=== PATIENT | female | born 1960 | race African-American/Black ===

== ENCOUNTER 2023-11-26 14:42 | Outpatient (AMB) | payer MEDICARE, OTHER, SELFPAY ==
--- NOTE | 2023-11-26 14:46 | HO.NEPHOV ---
HPI HPI Comments History of Present Illness Details Geo is a 63-year-old female whom I had the pleasure of seeing in follow-up of her longstanding hypertension. She does not check her blood pressure at home. She is retired and is still doing some part-time jobs. She does not have any chest pain, shortness of breath, paroxysmal nocturnal dyspnea, orthopnea, pedal edema. She has no nausea, vomiting, diarrhea or orthostatic symptoms. She is compliant with her medications. Her blood pressure has been at goal. There were no new active complaints at the time of this office visit. [facility] Medical History (Updated 11/26/23 @ 15:48 by Lionel Altamirano MD) Hypertension Surgical History (Updated 11/26/23 @ 14:53 by Sandra Kim MA) History of eye surgery History of hysterectomy History of axillary surgery Family History (Updated 11/26/23 @ 14:57 by Sandra Kim MA) Mother Breast cancer Father Heart disease Paternal Uncle Cancer Maternal Grandmother Diabetes Maternal Grandfather Diabetes Maternal Uncle Lung cancer Paternal Uncle Cirrhosis of liver Social History (Updated 11/26/23 @ 14:57 by Sandra Kim MA) Alcohol intake: never Patient Tobacco Use Status: Never used Tobacco Vital Signs 11/26/23 14:48 Height 5 ft 3 in Weight 215 lb 6 oz BMI 38.1 BP 120/70 Blood Pressure Location Lt brachial Position Sitting Pulse 81 Pulse Source Pulse Oximeter Pulse Oximetry (%) 96 Oxygen Delivery Method Room Air Physical Exam Vital Signs: Last Vital Signs Pulse 81 11/26/23 14:48 BP 120/70 11/26/23 14:48 Pulse Ox 96 11/26/23 14:48 Oxygen Delivery Method Room Air 11/26/23 14:48 BMI result Body Mass Index 38.1 Const General: comfortable and no acute distress Orientation/consciousness: patient oriented x3 HEENT Head: Yes normocephalic Mouth: Normal oral and palatal mucosa present Eyes EOM: EOMs intact bilaterally Neck Neck: Yes supple Resp Auscultation: clear to auscultation bilaterally Cardio Jugular venous distension: no JVD Rate: regular rate GI Palpation (GI): Soft to palpation Auscultation: normal bowel sounds General: Yes no CVA tenderness Back/Spine/Pelvis Back: no CVA tenderness Skin General skin exam: no rashes or lesions noted Neuro General: patient oriented x3 and moves all extremities Extrem General: Yes no pedal edema Assessment & Plan Assessment & Plan (1) Hypertension: Code(s): I10 - Essential (primary) hypertension Qualifiers: Hypertension type: primary hypertension Qualified Code(s): I10 - Essential (primary) hypertension Plan Geo has longstanding hypertension. She does not have any retinopathy, heart failure, documented LVH or proteinuria. She has no history of hypokalemia, hypercalcemia or uncontrolled thyroid disorders. Her renal functions have been normal. She is compliant with her medication regimen. She should be on a low-sodium diet and should continue lifestyle modifications. She needs to lose some weight. I have ordered follow-up lab studies. I did not make any medication changes today. All her questions were answered. No prescription refill was requested. Follow-up appointment given. Orders: Orders Blood Urea Nitrogen Today I10 - Essential (primary) hypertension Creatinine Today I10 - Essential (primary) hypertension Calcium Today I10 - Essential (primary) hypertension Electrolytes Today I10 - Essential (primary) hypertension Coding Level of Care Code Est Pt Level 3 (29238) Diagnoses Primary hypertension I10 Hypertension type: primary hypertension Results Reviewed Nephrology Results: No Data to Display
[2023-11-26 14:48] VITALS: BP 120/70; PULSE 81; O2SAT 96; BMI 38.1
== END 2023-11-26 15:14 | disposition home or self-care (01) ==
PROVIDERS: PCP Internal Medicine; Visit Provider Internal Medicine Nephrology
DX: I10 Essential (primary) hypertension (principal)
CPT/HCPCS: 99213

== ENCOUNTER → 2023-11-26 14:42 | Outpatient (BNVA) | payer MEDICARE, OTHER, SELFPAY | PROVIDERS: PCP Internal Medicine; Visit Provider Internal Medicine Nephrology | DX: I10 Essential (primary) hypertension (principal) | CPT/HCPCS: 99212 ==

== ENCOUNTER 2024-06-02 14:27 | Outpatient (REF) | payer MEDICARE, OTHER, SELFPAY ==
[2024-06-02 18:09] LABS: Anion Gap 12 (12-20); Blood Urea Nitrogen 15 mg/dL (9-16); Calcium 9.9 mg/dL (8.4-10.2); Carbon Dioxide 28 mmol/L (22-29); Chloride 106 mmol/L (96-108); Estimated Glomerular Filt Rate > 60; Potassium 4.4 mmol/L (3.3-5.1); Sodium 142 mmol/L (135-145)
== END 2024-06-02 14:28 | disposition home or self-care (01) ==
LOC: HO.HKASLDS 14:27
PROVIDERS: Visit Provider Internal Medicine Nephrology
DX: I10 Essential (primary) hypertension (principal)
CPT/HCPCS: 36415; 80051; 82310; 82565; 84520

== ENCOUNTER 2024-06-04 14:15 | Outpatient (AMB) | payer MEDICARE, OTHER, SELFPAY ==
[2024-06-04 14:32] VITALS: BP 112/82; PULSE 73; O2SAT 95; BMI 37.0
--- NOTE | 2024-06-04 14:32 | HO.NEPHOV_ITS ---
Vital Signs 06/04/24 14:32 Height 5 ft 3 in Weight 209 lb 2 oz BMI 37.0 BP 112/82 Blood Pressure Location Lt brachial Position Sitting Pulse 73 Pulse Source Pulse Oximeter Pulse Oximetry (%) 95 Oxygen Delivery Method Room Air Intake Visit Reasons: Hypertension/ 6 MO FU/ LVM Prop Making Supervisor Required: No Accompanied by: Self / Same As Patient Allergies No Known Allergies Allergy (Verified 06/04/24 14:34) HPI Comments Details: Geo is a 63-year-old female whom I had the pleasure of seeing in follow-up of her longstanding hypertension. She does not check her blood pressure at home. She is retired and is still doing some part-time jobs. She does not have any chest pain, shortness of breath, paroxysmal nocturnal dyspnea, orthopnea, pedal edema. She has no nausea, vomiting, diarrhea or orthostatic symptoms. She is compliant with her medications. Her blood pressure has been at goal. There were no new active complaints at the time of this office visit. [facility] Medical History (Updated 11/26/23 @ 15:48 by Lionel Altamirano MD) Hypertension Surgical History History of eye surgery History of hysterectomy History of axillary surgery Family History Mother Breast cancer Father Heart disease Paternal Uncle Cancer Maternal Grandmother Diabetes Maternal Grandfather Diabetes Maternal Uncle Lung cancer Paternal Uncle Cirrhosis of liver Social History Alcohol intake: never Patient Tobacco Use Status: Never used Tobacco Physical Exam Vital Signs: Last Vital Signs Pulse 73 06/04/24 14:32 BP 112/82 06/04/24 14:32 Pulse Ox 95 06/04/24 14:32 Oxygen Delivery Method Room Air 06/04/24 14:32 BMI result Body Mass Index 37.0 Const General: comfortable and no acute distress Orientation/consciousness: patient oriented x3 HEENT Head: Yes normocephalic Mouth: Normal oral and palatal mucosa present Eyes EOM: EOMs intact bilaterally Neck Neck: Yes supple Resp Auscultation: clear to auscultation bilaterally Cardio Jugular venous distension: no JVD Rate: regular rate GI Palpation (GI): Soft to palpation Auscultation: normal bowel sounds General: Yes no CVA tenderness Back/Spine/Pelvis Back: no CVA tenderness Skin General skin exam: no rashes or lesions noted Neuro General: patient oriented x3 and moves all extremities Extrem General: Yes no pedal edema Results Reviewed Nephrology Results: Sodium 142 mmol/L (135-145) 06/02/24 Potassium 4.4 mmol/L (3.3-5.1) 06/02/24 Chloride 106 mmol/L (96-108) 06/02/24 Carbon Dioxide 28 mmol/L (22-29) 06/02/24 BUN 15 mg/dL (9-16) 06/02/24 Creatinine 0.84 mg/dL (0.5-1.4) 06/02/24 Calcium 9.9 mg/dL (8.4-10.2) 06/02/24 Assessment & Plan Assessment & Plan (1) Hypertension: Code(s): I10 - Essential (primary) hypertension Category: Medical Qualifiers: Hypertension type: primary hypertension Qualified Code(s): I10 - Essential (primary) hypertension Patience Guardado has longstanding hypertension. She does not have any retinopathy, heart failure, documented LVH or proteinuria. She has no history of hypokalemia, hypercalcemia or uncontrolled thyroid disorders. Her renal functions have been normal. She is compliant with her medication regimen. She should be on a low- sodium diet and should continue lifestyle modifications. She needs to lose some weight. I did not make any medication changes today. All her questions were answered. No prescription refill was requested. Follow-up appointment given Coding Level of Care Code Est Pt Level 4 (90234) Diagnoses Primary hypertension I10 Hypertension type: primary hypertension
== END 2024-06-04 14:52 | disposition home or self-care (01) ==
PROVIDERS: PCP Internal Medicine; Visit Provider Internal Medicine Nephrology
DX: I10 Essential (primary) hypertension (principal)
CPT/HCPCS: 99214

== ENCOUNTER → 2024-06-04 14:15 | Outpatient (BNVA) | payer MEDICARE, OTHER, SELFPAY | PROVIDERS: PCP Internal Medicine; Visit Provider Internal Medicine Nephrology | DX: I10 Essential (primary) hypertension (principal) | CPT/HCPCS: 99212 ==

== ENCOUNTER 2025-03-18 13:44 | Outpatient (AMB) | payer MEDICARE, OTHER, SELFPAY ==
--- OUTSIDE RECORDS SUMMARY | 2025-03-18 14:24 | XMS_ITS | Encounter Summary ---
Author Organization [facility] [place] [address] Care Team Providers Care Drier Attendant Name Role Phone Sandi Degroot MD Primary Care Prov ider Reason for Visit * Reason Onset Date Comments DME 02/25/2025 Encounter Details Date Type Department Care Team ([facility] Contact Info) Description 02/25/2025 Telephone Adult Medicine - [place] [address] [place] [phone] Sandi Degroot MD [address] [place] [address] DME Social History Tobacco Use Types Packs/Day Years Used Date Smoking Tobacco: Never Smokeless Tobacco: Never Alcohol Use Standard Drinks/Week Comments Yes 0 (1 standard drink = 0.6 oz pur e alcohol) Interpersonal Safety Answer Date Record ed Physical Abuse 01/21/2025 Verbal Abuse 01/21/2025 Comments No Sex and Gender Information Value Date Recorded Sex Assigned at Female 11/02/2024 12:57 PM EST Legal Sex Female 6:56 AM EST Gender Identity Female 11/02/2024 12:57 PM EST Sexual Orientation Straight 11/02/2024 12 :57 PM EST documented as of this encounter Progress Notes * Deonna Monroe - 03/09/2025 3:16 PM EDT They called again, hung up on them. * Desire Potter - 03/09/2025 10:22 AM EDT They called again with a [phone] #, I told her it was done and to stop calling us. * Deonna Monroe - 03/08/2025 9:01 AM EDT They called back, I said it was being worked on and I could not give them more information. * Maverick Carroll - 03/05/2025 8:47 AM EDT [facility] calling again about this. Placed call to pt to determine if this was something she actually asked for but pt did not answer. VM left on home and mobile number for pt to confirm whether or not this was asked for. After some further research to confirm my suspicions, Lexii informed me this is in fact a scam. If [facility] calls back inform them the order was received and is being worked on. * Deonna Monroe - 03/02/2025 9:34 AM EDT They called again, asking if this has been rec'd * Jack Zendejas - 02/25/2025 9:45 AM EDT [facility] [employer] called stating patient requested a bilateral knee support. They faxed us request for [employer] on 02/23 and 02/24. They called in today checking if we received it or not. Please advise documented in this encounter Plan of Treatment Upcoming Encounters Date Type Department Care Team (Late st Contact Info) Description 04/08/2025 1:45 PM EDT Appointment [facility] at [address] [phone] documented as of this encounter Visit Diagnoses Not on filedocumented in this encounter Care Teams Drier Attendant Relationship Specialty Start Date End Date Sandi Degroot MD [address] [place] [id number] PCP - General Internal Medicine 01/20/25 documented as of this encounter
--- OUTSIDE RECORDS SUMMARY | 2025-03-18 14:24 | XMS_ITS | Patient Health Record ---
Author Organization [employer] [facility] Address [address] [facility] [address] [place] [phone] Support Name Relationship Address Phone Geo Nowak Guarantor Unknown [phone] Allergies No Known Allergies Reason For Referral No Information Medications Medication SIG (Take, Route, Frequency, Duration) Notes Start Date End Date Status Phentermine HCl 30 MG 1 capsule Orally O nce a day for 28 days 01/26/2022 Active Vitamin D 50 MCG (1999) 1 tablet Orally Once a day Not-Taking Lovastatin 40 MG 1 tablet with the evening meal Orally Once a day for 90 days Active Zofran 4 MG 1 tablet Orally twic e a day as needed for 30 day(s) 03/07/2021 Active Metoprolol Succinate ER 25 MG 1 tablet Orally Once a day for 90 days Active Lisinopril 40 MG 1 tablet Orally Once a day for 90 days Active Move Free [facility] Advance - as directed Orally 1 tablet daily Active amLODIPine Besylate 5 MG 1 tablet Orally Once a day Active Immunizations Vaccine Route Administration Date Status Comme nts COVID Unknown 01/24/2021 Administered Moderna COVID Unknown 02/21/2021 Administered Moderna Social History Tobacco Use: Social History Observation Description Date Details (start date - stop date) Never Smoker NA - NA Tobacco Use/Smoking Question Answer Notes Are you a nonsmoker Alcohol Screen (Audit-C) Question Answer Notes Did you have a drink contain ing alcohol in the past year? Yes How often did you have a dri nk containing alcohol in the past year? Monthly or less (1 point) How many drinks did you have on a typical day when you were drinking in the past year? 1 or 2 drinks (0 point) How often did you have 6 or more drinks on one occasion in the past year? Never (0 point) Points 1 Interpretation Negative Problems Problem Type SNOMED Code ICD Code Onset Dates Problem Status W/U Status Risk Notes Problem Vitamin D deficiency (67141459) Vitamin D deficiency, unspecified (E55.9) Active confirmed Problem Morbid obesity (disorder) (466756486) Morbid (severe) obesity due to excess calories (E66.01) Active confirmed Problem Mixed hyperlipidemia (941064781) Mixed hyperlipidemia (E78.2) Active confirmed Problem Hyperglycemia (70539495) Hyperglycemia, unspecified (R73.9) Active confirmed Problem Body mass index (BMI) 40.0-44.9, adult (Z68.41) Active confirmed Problem Essential hypertension (50716776) Essential (primary) hypertension (I10) Active confirmed Plan Of Treatment Pending Test Test Name Order Date 25OH VITAMIN D 12/16/2019 COMPREHENSIVE METABOLIC PANEL 12/16/2019 HEMOGLOBIN A1C 12/16/2019 MAGNESIUM 12/16/2019 PHOSPHORUS 12/16/2019 TSH 12/16/2019 Insurance Providers Payer Name Payer Address Payer Phone Subscriber Number Group Number Insured Name Patient Relationship to Insured Coverage Start Date Coverage End Date [facility] [address] [place] [place], [place] [phone] [id number] Geo Nowak Self - patient is the insured Medical (General) History Medical History History ICD Code hypertension, benign hyperlipidemia Vitamin D deficiency Surgical History Surgery Date(Month/Year) partial hysterectomy lymph node removal Hospitalization History Reason Date(Month/Year)
--- OUTSIDE RECORDS SUMMARY | 2025-03-18 14:24 | XMS_ITS | Clinical Summary ---
Author Organization [facility] [address] [facility] lding Address [address] [place] [address] Phone Care Team Providers Care Home Improvement Contractor Name Role Phone Sandi Degroot MD Primary Care Prov ider Allergies No known active allergies Medications amLODIPine (NORVASC) 5 mg tablet TAKE 1 TABLET DAILY 90 tablet 1 4 Active lisinopril (PRINIVIL,ZEST RIL) 40 mg tablet TAKE 1 TABLET DAILY 90 tablet 1 4 Active lovastatin (MEVACOR) 40 mg tablet Take 1 tablet (40 mg total) by mouth 1 (one) time each day. 90 tablet 1 5 Active metoprolol succinate (TOPROL-XL) 25 mg 24 hr tablet TAKE 1 TABLET DAILY 90 tablet 5 Active glucosamine-ch ondroitin 500-400 mg tablet Take 1 tablet by mouth 3 (three) times a day. Active black cohosh root (BLACK COHOSH ORAL) Take by mouth. Ac tive polyethylene glycol (Golytely) 236-22.74-6.74 -5.86 gram solution Take 4L by mouth once for one dose. May substitue any PEG. Starting at 6PM the night before your procedure drink 1 8oz glasses at your own pace until you complete half of the gallon. Finish 2nd half of the gallon 5 hours before your procedure. 4000 mL 5 025 Discontin ued(Thera py completed ) bisacodyL (DULCOLAX) 5 mg EC tablet Take 2 tablets by mouth right before beginning bowel prep. See instructions provided by the office 2 tablet 025 Discontin ued(Thera py completed ) Active Problems Problem Noted Date Diagnosed Date Osteopenia 12/09/2023 Cataract of left eye 10/05/2021 Hypercholesteremia 09/28/2015 Essential hypertension 03/09/2013 Osteoarthritis 03/09/2013 Amblyopia 07/16/2008 Traumatic cataract 07/16/2008 Severe obesity with body mas s index (BMI) of 35.0 to 39.9 with serious comorbidity ([facility] V24, [facility] V28) 03/19/2006 Unspecified glaucoma(365.9) 03/19/2006 Encounters Date Type Department Care Team Description 03/11/2025 Telephone Adult Medicine [facility] [address] [place] [phone] Sandi Birch MD Fitting for DME 02/25/2025 Telephone Adult [facility] [address] [place] [phone] Sandi Birch MD DME 02/17/2025 11:00 AM EDT Office Visit Adult [address] [phone] Sandi Birch MD Essential hypertension (Primary Dx); Hypercholesteremia; Osteoarthritis, unspecified osteoarthritis type, unspecified site; Severe obesity with body mass index (BMI) of 35.0 to 39.9 with serious comorbidity ([facility] V24, [facility] V28) 01/21/2025 10:32 AM EDT Anesthesia Event [facility] [address] [place] [phone] Edilberto Wheat DO 01/21/2025 9:10 AM EDT - 01/21/2025 11:59 PM EDT Hospital Encounter [facility] [address] [place] [phone] Dominic Jesus MD Walsh, Michael, DO Georgette, Nathaniel, CRNA History of colon polyps Discharge Disposition: Home or Self Care from Last 3 Months Immunizations Name Administration Dates Next Due Hepatitis B (Recombivax HB-D ialysis) 18yo and older 06/23/2003,05/26/2003 Influenza Quadravalent, MDCK , 0.5ml, preservative free (Flucelvax) 6mo and older 08/07/2022,09/01/2019,07/17/2018 Influenza Quadravalent, MDCK , 0.5ml, with preservative (Flucelvax) 6mo and older 09/11/2017 Influenza trivalent, 0.5mL ( Fluad) 65yo and older 07/17/2024,09/30/2023 Influenza trivalent, 0.5mL, preservative free (Fluarix; FluLaval; Fluzone) ages 6mo and older (Afluria) 3 years and older 09/19/2021 Influenza trivalent, with preservative (Fluzone; Afluria) 6mo and older 09/04/2020,10/26/2016,08/24/2015,2013,08/09/2010,10/07/2009 Moderna (age 6mo & older) Bi valent, COVID-19, 0.5 mL or 0.25 mL dosage 08/25/2022 Pneumococcal conjugate 20 va lent (Prevnar 20, PCV 20) 2mo and older 07/17/2024,09/30/2023 Respiratory syncytial virus (RSV), unspecified 10/08/2023 TD, Adsorbed, Preservative Free 05/04/2003 Tdap Tetanus diptheria acell ular pertussis (Boostrix; Adacel) 7yo and older 07/17/2024,02/19/2014 Zoster recombinant (Shingrix ) 19yo and older 03/29/2023,09/15/2022 Surgical History Surgery Date Site/Laterality Comments OTHER SURGICAL HISTORY PROCEDURE: HISTORICAL TOTAL HYSTERECTOMY W/O BSO; COMMENT: abd partial hyst OTHER SURGICAL HISTORY PROCEDURE: TN BX/EXC LYMPH NODE OPEN DEEP AXILLARY NODE; COMMENT: COLONOSCOPY 05/12/2009 PROCEDURE: HISTORICAL COLONOSCOPY; COMMENT: Normal COLONOSCOPY 11/23/2019 PROCEDURE: HISTORICAL COLONOSCOPY; COMMENT: Inadequate prep; no large lesions; repeat in 5 years. Medical History Medical History Date Comments Family history of malignant neoplasm of gastrointestinal tract 05/12/2009 DX:Family history of maligna nt neoplasm of gastrointestinal tract Amblyopia 07/16/2008 DX:Amblyopia Unspecified glaucoma(365.9) 03/19/2006 DX:U nspecified glaucoma(365.9) HTN (hypertension) 03/09/2013 DX:HTN (hyper tension) Family History Medical History Relation Name Comments Glaucoma Aunt maternal aunt Coronary artery disease Father Heart attack Father Colon cancer Father's side 1 Uncle Brain cancer Father's side 2 uncle Liver cancer Father's side 3 uncle Breast cancer Mother Throat cancer Mother's side uncle Relation Name Status Comments Aunt Alive Father Father's side 1 Father's side 2 Father's side 3 Mother Mother's side Uncle Social History Tobacco Use Types Packs/Day Years Used Date Smoking Tobacco: Never Smokeless Tobacco: Never Tobacco Cessation:Counseling Given: Not Answered Alcohol Use Standard Drinks/Week Comments Yes 0 [...] Orientation Straight 11/02/2024 12 :57 PM EST Obstetrics History Last Filed Vital Signs Vital Sign Reading Time Taken Comments Blood Pressure 107/60 02/17/2025 11:00 AM EDT Pulse 69 02/17/2025 11:00 AM EDT Temperature 36.8 ??C (98.2 ??F) 02/17/2025 11:00 AM E DT Respiratory Rate 16 01/21/2025 11:09 AM EDT Oxygen Saturation 98% 01/21/2025 11:09 AM EDT Inhaled Oxygen Concentration - - Weight 95 kg (209 lb 6.4 oz) 02/17/2025 11:00 AM EDT Height 160 cm (5' 3 ) 01/14/2025 9:00 AM EDT Body Mass Index 37.09 01/14/2025 9:00 AM EDT Plan of Treatment Upcoming Encounters Date Type Department Care Team (Late st Contact Info) Description 04/08/2025 1:45 PM EDT [facility]ointment [facility] [address] [phone] Health Maintenance Due Date Last Done Comments Hepatitis B Vaccines (3 of 3 - 19+ 3-dose series) 11/26/2003 06/23/2003, 05/26/2003 RSV Immunization Adult Patients (1 - Risk 60-74 years 1-dose series) 2018 10/08/2023 Medicare Annual Wellness Visit 10/13/2022 Social Influencers of Health Screening 10/13/2022 COVID-19 Vaccine ( season) 2025 10/09/2024, 08/25/2022, 08/21/2022, Additional history exists Depression Screening 08/17/2025 08/17/2024 Hypertension/CHF/CAD Annual BMP Blood Test 08/28/2025 08/28/2024, 08/28/2024 Falls Risk Assessment 01/21/2026 01/21/2025, 024 Breast Cancer Screening 04/06/2026 04/06/20 24, 04/08/2023, 02/14/2022, Additional history exists Cholesterol Screening (Lipid Panel) 08/28/2029 08/28/2024, 08/28/2024 Colorectal Cancer Screening: Colonoscopy 01/21/2030 01/21/2025, 11/23/2019 Osteoporosis Screening (Bone Density Screening) 12/06/2033 12/06/2023, 10/18/2020 DTaP,Tdap,and Td Vaccines (3 - Td or Tdap) 07/17/2034 07/17/2024, 02/19/2014, 05/04/2003 Hepatitis C Screening Completed 04/25/2020 Zoster Vaccines Completed 03/29/2023, 09/15/2022 RSV Immunization Patients Under 20 months Aged Out 10/08/2023 No longer eligible based on patient's age to complete this topic Influenza Vaccine Completed 07/17/2024, , 08/07/2022, Additional history exists Pneumococcal Vaccine: 50+ Years Completed 07/17/2024, 09/30/2023 HIB Vaccines Aged Out No longer eligi ble based on patient's age to complete this topic HPV Vaccines Aged Out No longer eligi ble based on patient's age to complete this topic Hepatitis A Vaccines Aged Out No long er eligible based on patient's age to complete this topic IPV Vaccines Aged Out No longer eligi ble based on patient's age to complete this topic MMR Vaccines Aged Out No longer eligi ble based on patient's age to complete this topic Meningococcal ACWY Vaccine Aged Out N o longer eligible based on patient's age to complete this topic Meningococcal B Vaccine Aged Out No l onger eligible based on patient's age to complete this topic Varicella Vaccines Aged Out No longer eligible based on patient's age to complete this topic Procedures Procedure Name Priority Date/Time Associated Diagnosis Comments COLONOSCOPY Routine 01/21/2025 10:48 AM EDT History of colon polyps ANNUAL BMP BLOOD TEST Routine 08/28/2024 LIPID PANEL Routine 08/28/2024 DEPRESSION SCREENING Routine 08/17/2024 FALLS RISK ASSESSMENT Routine 08/17/2024 JAMISON SCREENING DIGITAL Routine 04/06/2024 2:25 PM EDT Encounter for screening mammogram for malignant neoplasm of breast DXA BONE DENSITY STUDY 1+ SITS AXIAL SKEL Routine 12/06/2023 1:39 PM EST Encounter for screening for osteoporosis HEPATITIS C SCREENING Routine 04/25/2020 from Last 3 Months or Most Recently Relevant to Health Maintenance Results * COLONOSCOPY Anesthesia - MAC; [facility] (01/21/2025 10:48 AM EDT) Anatomical Region Laterality Modality Other 01/21/2025 10:3 4 AM EDT Impressions 01/21/2025 10:50 AM EDT - Internal hemorrhoids. ? - Diverticulosis in the entire examined colon. ? - No specimens collected. Recommendation: ?- Use fiber, for example Citrucel, Fibercon, Konsyl or ? Metamucil. ? - Repeat colonoscopy in 10 years for screening ? purposes. Narrative 01/21/2025 10:50 AM EDT [facility] Patient Name: Geo Nowak Procedure Date: 01/21/2025 10:34 AM Date of : 1960 Age: 64 Gender: Female Note Status: Finalized Attending MD: Dominic Jesus MD, Procedure Date No Time: 01/21/2025 Procedure: ? Colonoscopy Indications: ? Screening for colorectal malignant neoplasm Providers: ? Dominic Jesus MD Referring MD: ?Dominic Jesus MD Medicines: ? Propofol per Anesthesia Complications: ? No immediate complications. Estimated Blood Loss: ? Estimated blood loss: none. Procedure: ? Pre-Anesthesia Assessment: ? - ASA Grade Assessment: II - A patient with mild ? systemic disease. ? After I obtained informed consent, the scope was ? passed under direct vision. Throughout the procedure, ? the patient's blood pressure, pulse, and oxygen ? saturations were monitored continuously.The ? Colonoscope was introduced through the anus and ? advanced to the cecum, identified by appendiceal ? orifice and ileocecal valve. The colonoscopy was ? performed without difficulty. The patient tolerated ? the procedure well. The quality of the bowel ? preparation was adequate. Findings: ?The perianal and digital rectal examinations were ? normal. ? Internal hemorrhoids were found during endoscopy. The ? hemorrhoids were Grade II (internal hemorrhoids that ? prolapse but reduce spontaneously). ? Scattered diverticula were found in the entire colon. Procedure Code(s): ? --- Professional --- ? G0121, Colorectal cancer screening; colonoscopy on ? individual not meeting criteria for high risk Diagnosis Code(s): ? --- Professional --- ? Z12.11, Encounter for screening for malignant neoplasm ? of colon ? K64.1, Second degree hemorrhoids ? K57.30, Diverticulosis of large intestine without ? perforation or abscess without bleeding CPT copyright 2020 [employer]. All rights reserved. The codes documented in this report are preliminary and upon professional fee coder review may be revised to meet current compliance requirements. Dominic Jesus MD 01/21/2025 10:50:07 AM This report has been signed electronically.Dominic Jesus MD Number of Addenda: 0 Note Initiated On: 01/21/2025 10:34 AM Scope In: Scope Out: ? Endoscopy Department at [facility] - [address] [place] [address], ? [place] [phone] Procedure Note Dominic Jesus MD - 01/21/2025 [facility] Patient Name: Geo Nowak Procedure Date: 01/21/2025 10:34 AM Date of : 1960 Age: 64 Gender: Female Note Status: Finalized Attending MD: Dominic Jesus MD, Procedure Date No Time: 01/21/2025 Procedure: Colonoscopy Indications: Screening for colorectal malignant neoplasm Providers: Dominic Jesus MD Referring MD: Dominic Jesus MD Medicines: Propofol per Anesthesia Complications: No immediate complications. Estimated Blood Loss: Estimated blood loss: none. Procedure: Pre-Anesthesia Assessment: - ASA Grade Assessment: II - A patient with mild systemic disease. After I obtained informed consent, the scope was passed under direct vision. Throughout theprocedure, the patient's blood pressure, pulse, and oxygen saturations were monitored continuously.The Colonoscope was introduced through the anus and advanced to the cecum, identified by appendiceal orifice and ileocecal valve. The colonoscopy was performed without difficulty. The patient tolerated the procedure well. The quality of the bowel preparation was adequate. Findings: The perianal and digital rectal examinations were normal. Internal hemorrhoids were found during endoscopy.The hemorrhoids were Grade II (internal hemorrhoidsthat prolapse but reduce spontaneously). Scattered diverticula were found in the entirecolon. Procedure Code(s): --- Professional --- G0121, Colorectal cancer screening; colonoscopy on individual not meeting criteria for high risk Diagnosis Code(s): --- Professional --- Z12.11, Encounter for screening for malignantneoplasm of colon K64.1, Second degree hemorrhoids K57.30, Diverticulosis of large intestine without perforation or abscess without bleeding CPT copyright 2020 [employer]. All rights reserved. The codes documented in this report are preliminary and upon professional fee coder reviewmay be revised to meet current compliance requirements. Dominic Jesus MD 01/21/2025 10:50:07 AM This report has been signed electronically.Dominic Jesus MD Number of Addenda: 0 Note Initiated On: 01/21/2025 10:34 AM Scope In: Scope Out: Endoscopy Department at [facility] - [address] [place] [phone] IMPRESSION: - Internal hemorrhoids. - Diverticulosis in the entire examined colon. - No specimens collected. Recommendation: - Use fiber, for example Citrucel, Fibercon, Konsylor Metamucil. - Repeat colonoscopy in 10 years for screening purposes. Dominic Jesus MD GI~PROCEDURE ORDERABLES Final Re sult * Annual BMP Blood Test (08/28/2024) Pathologist [facility] Annual BMP Blood Test abstracted Historical Provider HEALTH MAINTENANCE Final Result * Lipid panel (08/28/2024) LDL/HDL Ratio 3 0 - 4 Triglycerides 86 0 - 150 mg/dL Cholesterol 175 0 - 200 mg/dL HDL 61 >=40 mg/dL LDL Cholesterol 97 0 - 100 mg/dL Blood Venous blood specimen / Unknown Historical Provider LAB BLOOD ORDERABLES Susie l Result * Falls Risk Assessment (08/17/2024) Falls Risk Assessment abstracted us Historical Provider HEALTH MAINTENANCE Final Result * Depression Screening (08/17/2024) HM Depression Screening abstracted us Historical Provider HEALTH MAINTENANCE Final Result * JAMISON SCREENING DIGITAL (04/06/2024 2:25 PM EDT) Anatomical Region Laterality Modality Mammography 04/06/2024 1:36 PM EDT Narrative 04/06/2024 2:25 PM EDT [facility] Diagnostic Imaging Department [address] [place] [address] Patient: ??GEO NOWAK ?/Age/Sex: 1960 - 63 - F Unit#: ??[id number] ? Location/Status: ??SPDIMAM/REG CLI ? Mnemonic/Ordering Site: ??DIGSC/SPMAM Ordering Physician: ??SANDI DEGROOT MD [facility] Screening Digital - 04/06/24 - Report Status:Signed EXAM: [facility] Screening Digital EXAM DATE AND TIME: 04/06/2024 1:52 PM HISTORY: ??Annual screening COMPARISON: ??Multiple exams dating back to 2018 TECHNIQUE: Bilateral digital breast tomosynthesis was performed in the CC and MLO projections. Computer aided detection with [employer]ab[employer] X[employer] Software 3D 3.1 was employed. TISSUE DENSITY: b. There are scattered areas of fibroglandular density. FINDINGS: No suspicious masses, grouped microcalcifications, or areas of architectural distortion are seen. The skin and vascularity are unremarkable. IMPRESSION: Stable mammographic appearance of the breasts. ??No evidence of malignancy is seen. A negative mammogram in the presence of a clinically suspicious palpable abnormality does not preclude the possibility of malignancy or alter the indications for biopsy. BI-RADS: ??Category 1: Negative RECOMMENDATION(S): 1: Routine screening mammogram BILATERAL in 1 year. 3341F, 7025F Dictating Physician: ??HEATHER AN MD Electronically Signed by: ??HEATHER AN MD Dic Date/Time: ??04/06/241424 Sign date/Time: ??04/06/24 142 Procedure Note Heather An MD - 08/19/2024 [facility] Diagnostic Imaging Department [address] [place] [id number] Patient: GEO NOWAK /Age/Sex: 1960 - 63 - F Unit#: [id number] Location/Status: [facility] CLI Mnemonic/Ordering Site: [facility] Ordering Physician: SANDI DEGROOT MD [facility] Screening Digital - 04/06/24 - Report Status:Signed EXAM: [facility] Screening Digital EXAM DATE AND TIME: 04/06/2024 1:52 PM HISTORY: Annual screening COMPARISON: Multiple exams dating back to 2019 TECHNIQUE: Bilateral digital breast tomosynthesis was performed in the CCand MLO projections. Computer aided detection with [employer] 3D 3.1was employed. TISSUE DENSITY: b. There are scattered areas of fibroglandular density. FINDINGS: No suspicious masses, grouped microcalcifications, or areas ofarchitectural distortion are seen. The skin and vascularity are unremarkable. IMPRESSION: Stable mammographic appearance of the breasts. No evidence of malignancyis seen. A negative mammogram in the presence of a clinically suspicious palpable abnormality does not preclude the possibility of malignancy or alter the indications for biopsy. BI-RADS: Category 1: Negative RECOMMENDATION(S): 1: Routine screening mammogram BILATERAL in 1 year. 3341F, 7025F Dictating Physician: HEATHER AN MD Electronically Signed by: EHATHER AN MD Dic Date/Time: 04/06/24 1425 Sign date/Time: 04/06/24 142 Sandi Degroot MD IMG BI PROCEDURES Final Result * DXA BONE DENSITY STUDY 1+ SITS AXIAL SKEL (12/06/2023 1:39 PM EST) Anatomical Region Laterality Modality Bone Densitometr y 09/30/2023 10:4 9 AM EST Narrative 12/06/2023 1:53 PM EST BONE DENSITY (DEXA) ? Lumbar Spine T-score is -1.1. ?? (SD relative to 20-29 y/o adult) Z-score is 0.7. ??(SD relative to age matched peers) This is considered osteopenia by WHO criteria. Left Hip T-score is 0.8. Z-score is 2.0. This is considered normal by WHO criteria. There is advanced degenerative change of the left hip. IMPRESSION: This patient is considered to have osteopenia by WHO criteria. This patient has a 5.3% risk of major osteoporotic fracture and a 0.1% risk of hip fracture over the next 10 years. (World Health Organization Fracture Risk Assessment) The [facility] Department of Internal Medicine recommends using National Osteoporosis Foundation (NOF) guidelines in treatment decisions related to osteoporosis. NOF guidelines suggest considering treatment for postmenopausal women and men aged 50 or older presenting with the following: History of hip or vertebral fracture. T-score = -2.5 (DXA) at the femoral neck, total hip, or spine, after appropriate evaluation to exclude secondary causes. Low bone mass (T-score between -1.0 and -2.5 at the femoral neck or spine) AND a 10-year probability of a hip fracture = 3% OR a 10-year probability of a major osteoporosis-related fracture = 20% based on the [place]-adapted WHO algorithm Please note that all treatment decisions require clinical judgment and consideration of individual patient factors, including patient preferences, co-morbidities, previous drug use, risk factors not captured in the FRAX model (e.g., frailty, falls, vitamin D deficiency, increased bone turnover, interval significant decline in bone density) and possible under- or over-estimation of fracture risk by FRAX. Optional alternative screening schedule based on carson Jackson., [facility] November 22, 2011 for patients with osteopenia (based on hip BMD T-score) is as follows: * ??advanced osteopenia (T scores -2.00 to -2.49), BMD testing every year * ??moderate osteopenia (T scores -1.50 to -1.99), BMD testing every 5 years mild osteopenia or normal BMD (T scores -1.50 and higher), BMD testing every 15 years Procedure Note Karon Bazan MD - 06/22/2024 BONE DENSITY (DEXA) Lumbar Spine T-score is -1.1. (SD relative to 20-29 y/o adult) Z-score is 0.7. (SD relative to age matched peers) This is considered osteopenia by WHO criteria. Left Hip T-score is 0.8. Z-score is 2.0. This is considered normal by WHO criteria. There is advanced degenerative change of the left hip. IMPRESSION: This patient is considered to have osteopenia by WHO criteria. Thispatient has a 5.3% risk of major osteoporotic fracture and a 0.1% risk of hip fracture over the next10 years. (World Health Organization Fracture Risk Assessment) The [facility] Department of Internal Medicinerecommends using National Osteoporosis Foundation (NOF) guidelines in treatment decisionsrelated to osteoporosis. NOF guidelines suggest considering treatment forpostmenopausal women and men aged 50 or older presenting with the following: History of hip or vertebral fracture. T-score = -2.5 (DXA) at the femoral neck, total hip, or spine, afterappropriate evaluation to exclude secondary causes. Low bone mass (T-score between -1.0 and -2.5 at the femoral neck or spine)AND a 10-year probability of a hip fracture = 3% OR a 10-year probability of a majorosteoporosis-related fracture = 20% based on the [place]-adapted WHO algorithm Please note that all treatment decisions require clinical judgment andconsideration of individual patient factors, including patient preferences, co- morbidities,previous drug use, risk factors not captured in the FRAX model (e.g., frailty, falls, vitaminD deficiency, increased bone turnover, interval significant decline in bone density) andpossible under- or over-estimation of fracture risk by FRAX. Optional alternative screening schedule based on baldomero Jackson al., NEJMJanuary 2011 for patients with osteopenia (based on hip BMD T-score) is as follows: * advanced osteopenia (T scores -2.00 to -2.49), BMD testing every year * moderate osteopenia (T scores -1.50 to -1.99), BMD testing every 5years mild osteopenia or normal BMD (T scores -1.50 and higher), BMD testingevery 15 years Tina [facility]INCLAIR IMG DXA PROCEDURES Final R esult * Hepatitis C Screening (04/25/2020) [facility] Hepatitis C Screening abstracted Historical Provider HEALTH MAINTENANCE Final Result from Last 3 Months or Most Recently Relevant to Health Maintenance Insurance MEDICARE [facility] Care Teams Home Improvement Contractor Relationship Specialty Start Date End Date Sandi Degroot MD [address] [place] [address] [place] [id number] PCP - General Internal Medicine 01/20/25
--- OUTSIDE RECORDS SUMMARY | 2025-03-18 14:24 | XMS_ITS | Encounter Summary ---
Author Organization [facility] [address] Care Team Providers Care Tape Stringer Name Role Phone Sandi Degroot MD Primary Care Prov ider Reason for Visit * Reason Onset Date Comments Fitting for DME 03/11/2025 Encounter Details Date Type Department Care Team ([facility] Contact Info) Description 03/11/2025 Telephone Adult Medicine - [place] [address] [place] [phone] Sandi Degroot MD [address] [place] [address] Fitting for DME Social History Tobacco Use Types Packs/Day [...] as of this encounter Progress Notes * Maverick Carroll - 03/11/2025 10:38 AM EDT Received call from someone claiming to be from [facility] looking to get an order done for a glucose monitor. Spoke with pt and confirmed this is not something she is looking for. When this order is received, pls disregard it and inform [facility] if they call back the office will not be signing off onthis at this time. documented in this encounter Plan of Treatment Upcoming Encounters Date Type Department Care Team (Late st Contact Info) Description 04/08/2025 1:45 PM EDT Appointment [facility] at [address] [phone] documented as of this encounter Visit Diagnoses Not on filedocumented in this encounter Care Teams Tape Stringer Relationship Specialty Start Date End Date Sandi Degroot MD [address] [place] [id number] PCP - General Internal Medicine 01/20/25 documented as of this encounter
--- OUTSIDE RECORDS SUMMARY | 2025-03-18 14:24 | XMS_ITS | Clinical Summary ---
Author Organization [facility] Address [address] [place] [address] Phone Care Team Providers Care Educational Resource Coordinator Name Role Phone Sandi Degroot MD Primary Care Pr ovider Allergies No known active allergies Medications amLODIPine (NORVASC) 5 MG tablet Take 1 tablet by mouth 1 (one) time each day Active metoprolol succinate XL (TOPROL XL) 25 MG 24 hr tablet Take 1 tablet by mouth 1 (one) time each day Active lovastatin (MEVACOR) 40 MG tablet Take 1 tablet by mouth 1 (one) time each day 10/19/2021 Active phentermine 15 MG capsule Take 1 capsule by mouth 1 (one) time each day 10/04/2021 Active lisinopril 40 MG tablet TAKE 1 TABLET DAILY 90 tablet 3 01/09/2022 Active Active Problems Problem Noted Date Diagnosed Date Hypertension 11/28/2021 Essential hypertension 09/14/2021 Resolved Problems Problem Noted Date Diagnosed Date Resolved Date Body mass index 40+ - severely obese 09/14/2021 09/14/2021 Hyperglycemia 09/14/2021 09/14/2021 Mixed hyperlipidemia 09/14/2021 021 Vitamin D deficiency 09/14/2021 021 Family History Medical History Relation Comments Heart disease Father Hypertension Mother Relation Status Comments Father Mother Social History Tobacco Use Types Packs/Day Years Used Date Smoking Tobacco: Never Smokeless Tobacco: Never Alcohol Use Standard Drinks/Week Comments Yes 0 (1 standard drink = 0.6 oz pure alcohol) Alcoholic Drinks/day: Occasional social drink Comments Unknown Sex and Gender Information Value Date Recorded Sex Assigned at Not on file Legal Sex Female 4:51 PM EST Gender Identity Not on file Sexual Orientation Not on file Last Filed Vital Signs Vital Sign Reading Time Taken Comments Blood Pressure 120/80 01/24/2023 2:40 PM EDT Pulse 64 01/24/2023 2:40 PM EDT Temperature - - Respiratory Rate - - Oxygen Saturation 98% 11/28/2021 2:16 PM EST Inhaled Oxygen Concentration - - Weight 101 kg (223 lb 3.2 oz) 11/28/2021 2:16 PM EST Height 160 cm (5' 3 ) 06/09/2020 12:00 PM EDT Body Mass Index 39.54 06/09/2020 12:00 PM EDT Plan of Treatment Health Maintenance Due Date Last Done Comments Breast Cancer Screening 1960 Pneumococcal Vaccine: 50+ Ye ars (1 of 2 - PCV) 1977 Colorectal Cancer Screening: Annual FOBT 2007 Colorectal Cancer Screening: Colonoscopy 2007 Colorectal Cancer Screening: Sigmoidoscopy 2007 Influenza Vaccine (Season Ended) 2025 Hepatitis B Vaccine Aged Out No longe r eligible based on patient's age to complete this topic Insurance Medicare Medicare Care Teams Educational Resource Coordinator Relationship Specialty Start Date End Date Sandi Degroot MD PCP - General 11/14/20
--- OUTSIDE RECORDS SUMMARY | 2025-03-18 14:24 | XMS_ITS | Patient Health Record ---
Author Organization [facility] Address [address] [place] [address] Care Team Providers Care Flow Manager Name Role Phone Sandi Degroot Primary Care Provide r Unavailable Allergies No Known Allergies Reason For Referral No Information Medications Medication SIG (Take, Route, Frequency, Duration) Notes Start Date End Date Status Metoprolol Succinate 25 MG 1 capsule Ora lly Once a day Active Lovastatin 20 MG 1 tablet with the evening meal Orally Once a day Active Sennosides 8.6 MG 2 tablets at bedtime as needed Orally Once a day Active amLODIPine Besylate 5 MG 1 tablet Orally Once a day Active Lisinopril 20 MG 1 tablet Orally Once a day Active Acetaminophen 650 MG/20.3ML as directed Orally Active Phentermine-Topiramate 7.5-46 MG 1 capsule Orally Once a day Active Plan Of Treatment No Information Insurance Providers Payer Name Payer Address Payer Phone Subscriber Number Group Number Insured Name Patient Relationship to Insured Coverage Start Date Coverage End Date [address] [place] [address] [phone] [id number] Geo Nowak Self - patient is the insured Medical (General) History Medical History History ICD Code Pure hypercholesterolemia, unspecified E 78.00 Osteoarthritis of hip, unspecified M16.9 Essential (primary) hypertension I10 Family history of malignant neoplasm of digestive organs Z80.0 Unspecified traumatic cataract, unspecif ied eye H26.109 Unspecified amblyopia, unspecified eye H 53.009 Obesity, unspecified E66.9 Unspecified glaucoma H40.9 Family history of ischemic h eart disease and other diseases of the circulatory system Z82.49 Family history of malignant neoplasm of breast Z80.3 Surgical History Surgery Date(Month/Year) Biopsy/Remove lymph nodes armpit Historical colonoscopy Historical total hyterectomy
--- NOTE | 2025-03-18 14:48 | HO.NEPHOV ---
Vital Signs 03/18/25 14:52 Height 5 ft 3 in Weight 210 lb 4 oz BMI 37.2 BP 114/70 Blood Pressure Location Lt brachial Position Sitting Pulse 59 Pulse Source Pulse Oximeter Pulse Oximetry (%) 94 Oxygen Delivery Method Room Air Intake Visit Reasons: NO SHOW 03/02/25-[facility] [employer] Observer Helper Required: No Accompanied by: Self / Same As Patient Allergies No Known Allergies Allergy (Verified 03/18/25 14:52) HPI Comments Details: Geo is a 64-year-old female whom I had the pleasure of seeing in follow-up of her longstanding hypertension. She does not check her blood pressure at home. She is retired and is still doing some part-time jobs. She does not have any chest pain, shortness of breath, paroxysmal nocturnal dyspnea, orthopnea, pedal edema. She has no nausea, vomiting, diarrhea or orthostatic symptoms. She is compliant with her medications. Her blood pressure has been at goal. There were no new active complaints at the time of this office visit. [facility] Medical History (Updated 11/26/23 @ 15:48 by Lionel Altamirano MD) Hypertension Surgical History History of eye surgery History of hysterectomy History of axillary surgery Family History Mother Breast cancer Father Heart disease Paternal Uncle Cancer Maternal Grandmother Diabetes Maternal Grandfather Diabetes Maternal Uncle Lung cancer Paternal Uncle Cirrhosis of liver Social History Alcohol intake: never Patient Tobacco Use Status: Never used Tobacco Review of Systems Const All systems reviewed & are unremarkable except as noted in HPI and below Physical Exam Vital Signs: Last Vital Signs Pulse 59 03/18/25 14:52 BP 114/70 03/18/25 14:52 Pulse Ox 94 03/18/25 14:52 Oxygen Delivery Method Room Air 03/18/25 14:52 BMI result Body Mass Index 37.2 Const General: comfortable and no acute distress Orientation/consciousness: patient oriented x3 HEENT Head: Yes normocephalic Mouth: Normal oral and palatal mucosa present Eyes EOM: EOMs intact bilaterally Neck Neck: Yes supple Resp Auscultation: clear to auscultation bilaterally Cardio Jugular venous distension: no JVD Rate: regular rate GI Palpation (GI): Soft to palpation Auscultation: normal bowel sounds General: Yes no CVA tenderness Back/Spine/Pelvis Back: no CVA tenderness Skin General skin exam: no rashes or lesions noted Neuro General: patient oriented x3 and moves all extremities Extrem General: Yes no pedal edema Assessment & Plan Assessment & Plan (1) Hypertension: Code(s): I10 - Essential (primary) hypertension Category: Medical Qualifiers: Hypertension type: primary hypertension Qualified Code(s): I10 - Essential (primary) hypertension Plan Geo has longstanding hypertension. She does not have any retinopathy, heart failure, documented LVH or proteinuria. She has no history of hypokalemia, hypercalcemia or uncontrolled thyroid disorders. Her renal functions have been normal. She is compliant with her medication regimen. She should be on a low-sodium diet and should continue lifestyle modifications. She needs to lose some weight. I did not make any medication changes today. All her questions were answered. No prescription refill was requested. Follow-up appointment given Orders: Orders Creatinine Today I10 - Essential (primary) hypertension Blood Urea Nitrogen Today I10 - Essential (primary) hypertension Electrolytes Today I10 - Essential (primary) hypertension Protein Creatinine Ratio, Ur Today I10 - Essential (primary) hypertension Coding Level of Care Code Est Pt Level 4 (71417) Diagnoses Primary hypertension I10 Hypertension type: primary hypertension
[2025-03-18 14:52] VITALS: BP 114/70; PULSE 59; O2SAT 94; BMI 37.2
== END 2025-03-18 15:14 | disposition home or self-care (01) ==
LOC: HO.HKAS 13:45
PROVIDERS: PCP Internal Medicine; Visit Provider Internal Medicine Nephrology
DX: I10 Essential (primary) hypertension (principal)
CPT/HCPCS: 99214

== ENCOUNTER → 2025-03-18 13:44 | Outpatient (BNVA) | payer MEDICARE, OTHER, SELFPAY | PROVIDERS: PCP Internal Medicine; Visit Provider Internal Medicine Nephrology | DX: I10 Essential (primary) hypertension (principal) | CPT/HCPCS: 99212 ==